=== PATIENT | male | born 1990 | race Two or more races ===

== ENCOUNTER 2017-01-05 00:19 | Emergency (ER) | payer SELFPAY ==
[~2017-01-05] VITALS: Ht 162.6 cm; Wt 63.5 kg
[2017-01-05] MEDS ORDERED: NKM (00:29)
[2017-01-05] MEDS ORDERED: Ketorolac 30mg Inj IV ONE (00:30)
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
[2017-01-05 02:00] VITALS: BP 117/64
[2017-01-05 02:44] LABS: BASOPHILS % (AUTO) 0.5 % (0.0-2.0); EOSINOPHILS % (AUTO) 0.2 % (0.0-3.0); LYMPHOCYTES % (AUTO) 8.7 % (20.0-45.0); MEAN CORPUSCULAR HEMOGLOBIN 33.9 PG (27.0-31.0); MEAN CORPUSCULAR HGB CONC 34.2 G/DL (32.0-36.0); MEAN CORPUSCULAR VOLUME 99 FL (80-99); MEAN PLATELET VOLUME 7.8 FL (6.5-10.1); MONOCYTES % (AUTO) 8.7 % (1.0-10.0); PLATELET COUNT 301 K/UL (150-450); RED BLOOD COUNT 4.57 M/UL (4.70-6.10); RED CELL DISTRIBUTION WIDTH 11.5 % (11.6-14.8); WHITE BLOOD COUNT 14.7 K/UL (4.8-10.8)
[2017-01-05 02:51] LABS: INR 0.9 (0.9-1.1); PROTHROMBIN TIME 9.5 SEC (9.30-11.50)
[2017-01-05 02:58] LABS: ACETAMINOPHEN < 10 ug/mL (10-30); ALANINE AMINOTRANSFERASE 33 U/L (3-41); ALBUMIN/GLOBULIN RATIO 1.6 (1.0-2.7); ALCOHOL 124 mg/dL; ANION GAP 14 (5-15); ASPARTATE AMINO TRANSFERASE 35 U/L (5-40); CALCIUM 8.9 mg/dL (8.6-10.2); CARBON DIOXIDE 25 mEQ/L (20-30); CHLORIDE 103 mEQ/L (98-107); CREATININE 0.8 mg/dL (0.7-1.2); GLOMERULAR FILTRATION RATE > 60 mL/min (>60); HEMOLYSIS 4; POTASSIUM 3.6 mEQ/L (3.4-4.9); SODIUM 142 mEQ/L (135-145); TOTAL PROTEIN 6.9 g/dL (6.6-8.7)
[2017-01-05 03:00] VITALS: BP 107/53
[2017-01-05 03:19] LABS: REFLEX LACTIC ACID YES OR NO YES
[2017-01-05 04:00] VITALS: BP 107/59
[2017-01-05 04:15] LABS: APPEARANCE,URINE SLIGHTLY CLOUDY; KETONES,URINE NEGATIVE (NEGATIVE); LEUKOCYTE ESTERASE ,URINE NEGATIVE (NEGATIVE); NITRITE,URINE NEGATIVE (NEGATIVE); PH,URINE 5 (4.5-8.0); PROTEIN,URINE NEGATIVE (NEGATIVE); UROBILINOGEN,URINE NORMAL MG/DL (0.0-1.0)
[2017-01-05 05:00] VITALS: BP 112/64
[2017-01-05 06:00] VITALS: BP 112/70
[2017-01-05 06:40] VITALS: BP 112/70
--- NOTE | 2017-01-05 08:27 | Diagnostic Imaging Report ---
\H\CT THORAX\N\ Indications: Chest trauma, pain Technique: Continuous helical CT imaging of the thorax and upper abdomen was performed with automatic exposure control following intravenous administration of nonionic iodine contrast, on a Siemens sensation [address] scanner. Axial, coronal, and sagittal images were reconstructed at 5 mm slice thickness. CTDI volume(s): 8, 89, 14, 11 mGy Total DLP: 1007 mGy-cm (Includes CT abdomen pelvis) Findings: Comparison: None There is a mildly displaced fracture of the lateral aspect of the left sixth rib with a small gas collection in the fracture cleft. No additional fracture demonstrated. Focal groundglass opacity is present in the subjacent periphery of the superior segment of the lower lobe of the left lung. Small pneumothorax is present in the apical and anterior basal aspects of the left pleural space. Small regular pleural-based linear densities are present in the dependent portions of both lung bases. No additional pulmonary parenchymal or pleural abnormality demonstrated. Heart is normal in size. No pericardial abnormality. No mediastinal or hilar enlarged lymph nodes, other abnormal mass or fluid collection. Central pulmonary vasculature is well opacified, unremarkable in appearance. Left lateral chest wall soft tissues overlying the aforementioned fracture slightly swollen with stranding. No discrete mass or fluid collection. IMPRESSION: Acute fracture left sixth rib with subjacent small pulmonary contusion, small left pneumothorax No other evidence of acute injury Minimal pulmonary bibasal subsegmental atelectasis This correlates with [facility] preliminary report. \H\CT ABDOMEN PELVIS \N\ Indications: Abdominal pain Technique: Continuous helical CT imaging of the abdomen and pelvis was performed with automatic exposure control following administration of nonionic IV contrast only, on a Siemens sensation [address] scanner. Axial and coronal images were reconstructed at 5 mm slice thickness. No oral contrast was administered per protocol, . CTDI volume(s): As above mGy Total DLP: As above mGy-cm Findings: Comparison: None Liver, pancreas, spleen, adrenal glands, kidneys demonstrate homogeneous parenchymal enhancement without focal parenchymal abnormality, adjacent stranding or fluid. No extraluminal gas or fluid collections are identified. Gallbladder, unopacified ureters and urinary bladder, prostate, seminal vesicles, vascular structures, retroperitoneum, mesentery, unopacified gastrointestinal tract, remainder visualized abdominopelvic anatomy demonstrates no other obvious acute abnormality. No fracture demonstrated. Abdominopelvic wall soft tissues unremarkable. IMPRESSION: No evidence of acute injury No other evidence of acute abdominopelvic disease, limited by lack of oral contrast This correlates with [facility] preliminary report.
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
--- NOTE | 2017-01-19 19:09 | Cardiology Report ---
APPROVED REPORT EKG Measurement Heart [id number] Normal sinus rhythm with sinus arrhythmia Normal ECG
== END 2017-01-05 06:45 | disposition short-term general hospital (02) ==
LOC: EMR 00:50
DX: S22.32XA Fracture of one rib, left side, initial encounter for closed fracture (principal); Y04.2XXA Assault by strike against or bumped into by another person, initial encounter; Y92.89 Other specified places as the place of occurrence of the external cause; J93.83 Other pneumothorax
CPT/HCPCS: 36415; 71010; 71260; 74177; 80053; 80300; 81003; 82550; 83605; 85025; 85610; 85730; 86850; 86900; 86901; 93005; 96361; 96374; 96375; 99285; G0480; J1885; J2405; Q9967; 80329; 96360